=== PATIENT | female | born 1935 | race Caucasian/White ===

== ENCOUNTER → 2017-03-29 | Outpatient (CLI) | payer MEDICARE, OTHER ==
[~2017-03-29] MED LIST: CLARITIN10 M1 PO; CLARITIN10 M3 PO; CLARITIN10 MG PO; DITROPAN XL5 M1 PO; DITROPAN5 MG PO; LEVAQUIN250 MG PO; MEGESTROL; MEGESTROL ACETA20 MG PO; PANTOPRAZOLE SO40 MG PO; PERCOCET 5-3251 TAB PO; PRILOSEC PO; PRILOSEC20 M1 PO; TRAVEL MOTION S25 MG PO; ZOFRAN ODT4 MG PO
[2017-03-29 15:07] LABS: BUN/CREATININE RATIO 13.07; CALCIUM SERUM 9.5 mg/dL (8.4-10.2); CREATININE SERUM 1.3 mg/dL (0.6-1.4); GLOM FILT RATE Estimated 37.9 mL/min (>60); MAGNESIUM 2.1 mg/dL (1.6-3.0); POTASSIUM 4.5 mmol/L (3.5-5.1)
== END | disposition home or self-care (01) ==
LOC: CLAB 14:10
DX: I10 Essential (primary) hypertension (principal)
CPT/HCPCS: 36415; 80048; 83735

== ENCOUNTER 2017-04-11 20:42 | Emergency (ER) | payer MEDICARE, OTHER ==
[~2017-04-11] VITALS: Ht 157.5 cm; Wt 51.2 kg
--- NOTE | ~2017-04-11 | CT71 ---
[facility] A Service [facility] RADIOLOGY TEXT RESULTS PATIENT: STEVO DURAN LOCATION: [facility] : [birth year] UNIT #: [id number] AGE: [address]: David Feliz MD SEX: F ORDER DR: [id number] [facility] [address] [place], [place] [address] [id number] E MR#: [id number] Acc #: [id number] NAME: STEVO DURAN. : 1935 SEX: F STUDY DATE/TIME: 04/11/2017 21:23 UNIT: [facility] ROOM: STUDY DESCRIPTION: CT Head Wo Contrast Attending Physician: David Feliz M.D. Ordering Physician: David Feliz M.D. Primary Care Physician: Shukri Peguero M.D. MEDICAL IMAGING REPORT This report is preliminary unless electronic signature is present EXAM CT head without contrast dated 04/11/2017 HISTORY An 81-year-old female who fell, with hematoma and abrasion on head. Hit head on stove today. Dizziness. Neck pain. Additional history of colon cancer, cardiac disease, hypertension. COMPARISON Noncontrast CT head 02/06/2014. TECHNIQUE This CT exam was performed with one or more of the following radiation dose reduction techniques: automatic exposure control, adjustment of mA and/or kV according to patient size, and iterative reconstruction. FINDINGS Right frontal scalp soft tissue swelling is present. No retained radiopaque foreign body is seen within the scalp soft tissues. No displaced calvarial fracture is identified. Paranasal sinuses and mastoid air cells appear clear. Moderate bilateral intracranial carotid artery calcifications and left vertebral artery calcifications are noted. No acute intracranial hemorrhage, mass lesion, mass effect or midline shift is seen. There is moderate generalized parenchymal atrophy and scattered areas of chronic microvascular disease change. Chronic-appearing lacunar infarcts are noted within the right basal ganglia and within the deborah on the left. No CT evidence of acute or evolving infarct. IMPRESSION 1. Right frontal scalp soft tissue swelling. No acute intracranial [facility] A Service [facility] RADIOLOGY TEXT RESULTS PATIENT: STEVO DURAN LOCATION: [facility] #: [id number] : [birth year] UNIT #: [id number] AGE: [address]: David Feliz MD SEX: F ORDER DR: findings. 2. Moderate atrophy. Chronic microvascular disease changes. Chronic-appearing lacunar infarcts in the deborah and within the right basal ganglia. Dictated by... Amara Avila M.D. THIS IS AN ELECTRONICALLY VERIFIED REPORT Amara Avila M.D. at 04/15/2017 8:42 AM PAIGE/ginny TD: 04/12/2017 01:31 JOB #: [id number] MEDICAL IMAGING REPORT Page 1 of 1 COPY
--- NOTE | ~2017-04-11 | CT52 ---
[facility] A Service of [facility] RADIOLOGY TEXT RESULTS PATIENT: STEVO DURAN LOCATION: [facility] : 33 UNIT #: [id number] AGE: [address]: David Feliz MD SEX: F ORDER DR: [id number] [facility] [address] [place], [place] [address] [id number] E MR#: [id number] Acc #: [id number] NAME: STEVO DURAN : 1935 SEX: F STUDY DATE/TIME: 04/11/2017 21:23 UNIT: [facility] ROOM: STUDY DESCRIPTION: CT Cervical Spine Wo Cont Attending Physician: David Feliz M.D. Ordering Physician: David Feliz M.D. Primary Care Physician: Shukri Peguero M.D. MEDICAL IMAGING REPORT This report is preliminary unless electronic signature is present EXAM CT cervical spine without contrast Date: 04/11/2017 HISTORY An 81-year-old female who fell and hit her head on a stove today with complaints of neck pain. COMPARISON CT cervical spine 06/02/13 PROCEDURE 2 mm noncontrast axial images through the cervical spine. Sagittal and coronal reformed images were obtained. FINDINGS Craniocervical junction is intact. No acute vertebral body fracture or subluxation is seen. Multilevel degenerative changes in the cervical spine. Moderate diminished disc height at C4-5, C5-6, C6-7 with anterior posterior osteophyte formation at each of these levels. At C2-3, there is mild facet arthropathy greatest on the left without high-grade canal or foraminal stenosis. At C3-4, there is mild to moderate bilateral facet arthropathy and mild posterior disc osteophyte formation with uncovertebral spurring with borderline canal stenosis but no significant neural foraminal stenosis. At C4-5, there is broad-based disc osteophyte formation with uncovertebral spurring, right greater than left facet arthropathy. There is severe [facility] A Service of [facility] RADIOLOGY TEXT RESULTS PATIENT: STEVO DURAN LOCATION: [facility] : 33 UNIT #: [id number] AGE: [address]: David Feliz MD SEX: F ORDER DR: right, mild left neural foraminal narrowing with mild canal stenosis. At C5-6, broad-based posterior disc osteophyte formation with bilateral uncovertebral spurring is present, and moderate right, jalg-gl-lhcmplta left facet arthropathy. There is severe right, bjhy-kj-brmkcfex left neural foraminal narrowing. At C6-7, broad-based posterior disc osteophyte formation is present with moderate to severe left, mild right facet arthropathy. There is mild canal stenosis and mild bilateral neural foraminal narrowing. At C7-T1, no significant disc bulge, canal or foraminal stenosis is identified. Low-density nodule within the right thyroid lobe containing eccentric coarse calcification is unchanged. Emphysematous changes are thought to be present in the lung apices. IMPRESSION 1. Multilevel degenerative changes in the cervical spine as described in report. Suspected severe right greater than left C5-6 and right greater left C4-5 neural foraminal stenosis. No high-grade canal stenosis is seen. 2. No acute cervical spine fracture or subluxation. Dictated by... Amara Avila M.D. THIS IS AN ELECTRONICALLY VERIFIED REPORT Amara Avila M.D. at 04/15/2017 8:43 AM Wang TD: 04/12/2017 01:40 JOB #: [id number] MEDICAL IMAGING REPORT Page 1 of 1 COPY
== END 2017-04-11 23:20 | disposition home or self-care (01) ==
LOC: CED 20:42
DX: S09.90XA Unspecified injury of head, initial encounter (principal); S00.81XA Abrasion of other part of head, initial encounter; I10 Essential (primary) hypertension; W01.198A Fall on same level from slipping, tripping and stumbling with subsequent striking against other object, initial encounter; Z85.038 Personal history of other malignant neoplasm of large intestine; F41.9 Anxiety disorder, unspecified; Y92.009 Unspecified place in unspecified non-institutional (private) residence as the place of occurrence of the external cause
CPT/HCPCS: 70450; 72125; 99284

== ENCOUNTER → 2017-04-17 | Outpatient (CLI) | payer MEDICARE, OTHER ==
--- NOTE | ~2017-04-17 | US11 ---
[facility] A Service of [facility] RADIOLOGY TEXT RESULTS PATIENT: STEVO DURAN LOCATION: [facility] : 33 UNIT #: [id number] AGE: [address]: Kevan Villarreal MD SEX: F ORDER DR: [id number] [facility] [address] [place], [place] [address] [id number] O MR#: [id number] Acc #: [id number] NAME: STEVO DURAN : 1935 SEX: F STUDY DATE/TIME: 04/17/2017 11:14 UNIT: [facility] ROOM: STUDY DESCRIPTION: US Aorta Duplex Complete Attending Physician: Kevan Villarreal M.D. Referring Physician: Kevan Villarreal M.D. Ordering Physician: Kevan Villarreal M.D. Primary Care Physician: Alden Barnhart M.D. MEDICAL IMAGING REPORT This report is preliminary unless electronic signature is present EXAM Ultrasound of the aorta, 04/17/2017. HISTORY Aortic aneurysm screening. FINDINGS High-resolution B-mode imaging and color flow Doppler analysis was performed of the abdominal aorta and iliac arteries in longitudinal and transverse views. Dense calcified plaque is noted throughout the abdominal aorta. The aorta measures 1.6 cm in greatest diameter in its proximal segment, 1.6 cm in greatest diameter in its mid segment and 1.2 cm in greatest diameter in its distal segment. The right common iliac artery measures about 9 mm in diameter. The left common iliac artery measures about 8 mm in diameter. There is no focal elevation of Doppler velocities at any level to suggest significant stenosis. IMPRESSION Plaque is noted in the abdominal aorta. No aneurysm is demonstrated in the abdominal aorta or iliac arteries. Dictated by... Ben Quintero M.D. THIS IS AN ELECTRONICALLY VERIFIED REPORT Ben Quintero M.D. at 04/18/2017 7:30 AM SBS/silverio TD: 04/18/2017 07:16 JOB #: [id number] MEDICAL IMAGING REPORT [facility] A Service of [facility] RADIOLOGY TEXT RESULTS PATIENT: STEVO DURAN LOCATION: [facility] : 33 UNIT #: [id number] AGE: [address]: Kevan Villarreal MD SEX: F ORDER DR: Page 1 of 1 COPY
== END | disposition home or self-care (01) ==
LOC: CGUS 10:23
DX: R42 Dizziness and giddiness (principal); I70.8 Atherosclerosis of other arteries; I10 Essential (primary) hypertension
CPT/HCPCS: 93978